=== PATIENT | female | born 1930 | race Caucasian/White ===

== ENCOUNTER 2018-09-17 22:12 | Inpatient (IN) | payer MEDICARE, MEDICAID ==
[~2018-09-17] VITALS: Ht 167.6 cm; Wt 77.6 kg
[2018-09-17 22:43] LABS: CHLORIDE 97 mEq/L (98-107)
[2018-09-17 22:44] LABS: BASOPHILS % 0.4 % (0.0-2.0); HEMOGLOBIN. 13.1 g/dL (12.0-16.0); LYMPHOCYTES % 37.3 % (20.0-50.0); MEAN CORPUSCULAR VOLUME 98.6 fL (81.0-99.0); MEAN PLATELET VOLUME 9.2 fl (7.4-10.4); MONOCYTES % 10.8 % (2.0-8.0); NEUTROPHILS % 48.5 % (40.0-76.0); PLATELET 222 x1000/uL (130-400); RED BLOOD CELL COUNT 3.96 mill/uL (4.2-5.4); RED CELL DISTRIBUTION WIDTH 14.3 % (11.6-14.6)
[2018-09-17] MEDS ORDERED: ALTEPLASE 100MG/VIAL IV STA (22:46)
[2018-09-17] MEDS ORDERED: ALTEPLASE IV STA (22:46)
[2018-09-17 22:50] LABS: LDL CHOLESTEROL 155 mg/dL (5-100)
[2018-09-17] MEDS ORDERED: IOHEXOL-350 100 ML BOTTLE ONE (23:24)
[2018-09-17] MEDS ORDERED: *NO ASPIRIN X 24 HOURS XX SCH (23:27)
[2018-09-17] MEDS ORDERED: ALTEPLASE 100MG/VIAL IV ONE (23:27)
[2018-09-17] MEDS ORDERED: CONTAINER EMPTY IV ONE (23:35)
[2018-09-17] MEDS ORDERED: ALTEPLASE IV ONE (23:35)
[2018-09-18] VITALS (30 sets, daily range): BP systolic 112–179; BP diastolic 50–90
[2018-09-18 00:38] LABS: CLARITY URINE CLEAR (CLEAR); COLOR URINE YELLOW (YELLOW); KETONES URINE NEGATIVE (NEGATIVE); LEUKOCYTE ESTERASE URINE 2+ (NEGATIVE); NITRITE URINE NEGATIVE (NEGATIVE); OCCULT BLOOD URINE TRACE (NEGATIVE); PH URINE 7.5 (4.5-8.0); PROTEIN URINE NEGATIVE (NEGATIVE); SPECIFIC GRAVITY URINE 1.021 (1.005-1.030); UROBILINOGEN URINE 0.2 E.U./dL (0.2-1.0)
[2018-09-18] MEDS ORDERED: LABETALOL 5MG/ML SYR 20 MG/4 ML SYRINGE IV ONE (03:45)
[2018-09-18] MEDS ORDERED: LABETALOL HCL 20MG/4ML CARPUJECT IV SCH (03:45)
[2018-09-18] MEDS ORDERED: MAGNESIUM/ALUMINUM HYDROXIDE/SIMETHICONE 30ML UDC PO PRN (08:30)
[2018-09-18] MEDS ORDERED: ACETAMINOPHEN 650MG/20.3ML UDC GT PRN (08:30)
[2018-09-18] MEDS ORDERED: ONDANSETRON HCL 4MG/2ML INJ IV PRN (08:30)
[2018-09-18] MEDS ORDERED: DOCUSATE SODIUM 100MG CAPSULE PO PRN (08:30)
[2018-09-18] MEDS ORDERED: DEXTROSE 50% WATER 50ML SYRINGE IV PRN (08:30)
[2018-09-18] MEDS ORDERED: NA PHOS,M-B/NA PHOS,DI-BA ENEMA 118ML PR PRN (08:30)
[2018-09-18] MEDS ORDERED: GUAIFENESIN 200MG/10ML SUGAR FREE UDC PO PRN (08:30)
[2018-09-18] MEDS ORDERED: ACETAMINOPHEN 650MG SUPP PR PRN (08:30)
[2018-09-18] MEDS ORDERED: DIPHENHYDRAMINE 50MG/ML VIAL IV PRN (08:30)
[2018-09-18] MEDS ORDERED: IPRATROPIUM/ALBUTEROL 0.5-3(2.5)MG/3ML NEB INH PRN (08:30)
[2018-09-18 10:10] LABS: T4 FREE 0.94 ng/dL (0.76-1.46)
[2018-09-18] MEDS: ACETAMINOPHEN 325MG TABLET PO PRN (12:24)
[2018-09-18 16:04] LABS: CREATINE KINASE 117 IU/L (26-192)
[2018-09-18 16:05] LABS: CREATINE KINASE MB FRACTION 1.3 ng/mL (0.5-3.6)
[2018-09-18] MEDS ORDERED: ONDANSETRON HCL 4MG/2ML INJ ONE (16:16)
[2018-09-18] MEDS: BLOOD SUGAR DIAGNOSTIC STRIP TEST SCH ×2 (16:30→21:36)
[2018-09-18] MEDS: SODIUM CHLORIDE 0.9% 1,000 ML IV SCH (17:00)
[2018-09-18] MEDS: ATORVASTATIN CALCIUM 20MG TABLET PO SCH (21:00)
[2018-09-18 21:34] LABS: CLARITY URINE CLOUDY (CLEAR); COLOR URINE YELLOW (YELLOW); KETONES URINE NEGATIVE (NEGATIVE); LEUKOCYTE ESTERASE URINE 3+ (NEGATIVE); NITRITE URINE POSITIVE (NEGATIVE); OCCULT BLOOD URINE 3+ (NEGATIVE); PROTEIN URINE TRACE (NEGATIVE); SPECIFIC GRAVITY URINE 1.012 (1.005-1.030); UROBILINOGEN URINE 0.2 E.U./dL (0.2-1.0)
[2018-09-18] MEDS: SODIUM CHLORIDE 0.9% INJ 3ML FLUSH IVF SCH (21:36)
[2018-09-18 22:04] LABS: *AMPHETAMINES SCREEN URINE NEGATIVE (NEGATIVE); *BARBITURATES SCREEN URINE NEGATIVE (NEGATIVE); *BENZODIAZEPINES SCREEN URINE NEGATIVE (NEGATIVE); *COCAINE SCREEN URINE NEGATIVE (NEGATIVE)
[2018-09-18 22:05] LABS: CANNABINOID URINE SCREEN NEGATIVE (NEGATIVE); METHADONE URINE SCREEN NEGATIVE (NEGATIVE); OPIATES URINE SCREEN NEGATIVE (NEGATIVE); PHENCYCLIDINE URINE SCREEN NEGATIVE (NEGATIVE)
[2018-09-19] VITALS (66 sets, daily range): BP systolic 84–167; BP diastolic 30–150
[2018-09-19 00:13] LABS: BASOPHILS % 0.5 % (0.0-2.0); EOSINOPHILS % 0.7 % (0.0-5.0); HEMATOCRIT. 36.9 % (36.0-48.0); HEMOGLOBIN. 12.4 g/dL (12.0-16.0); LYMPHOCYTES % 16.5 % (20.0-50.0); MEAN CORPUSCULAR HEMOGLOBIN 32.7 pg (28.0-32.0); MEAN CORPUSCULAR VOLUME 97.3 fL (81.0-99.0); MEAN PLATELET VOLUME 9.1 fl (7.4-10.4); MONOCYTES % 8.8 % (2.0-8.0); NEUTROPHILS % 73.5 % (40.0-76.0); PLATELET 213 x1000/uL (130-400); RED BLOOD CELL COUNT 3.79 mill/uL (4.2-5.4); RED CELL DISTRIBUTION WIDTH 13.9 % (11.6-14.6)
[2018-09-19 00:31] LABS: CHLORIDE 101 mEq/L (98-107)
[2018-09-19 00:43] LABS: CREATINE KINASE 167 IU/L (26-192)
[2018-09-19 00:46] LABS: CREATINE KINASE MB FRACTION 1.4 ng/mL (0.5-3.6)
[2018-09-19 05:48] LABS: BASOPHILS % 0.4 % (0.0-2.0); EOSINOPHILS % 1.3 % (0.0-5.0); HEMATOCRIT. 36.6 % (36.0-48.0); HEMOGLOBIN. 12.3 g/dL (12.0-16.0); LYMPHOCYTES % 9.6 % (20.0-50.0); MEAN CORPUSCULAR HEMOGLOBIN 32.6 pg (28.0-32.0); MEAN CORPUSCULAR VOLUME 97.2 fL (81.0-99.0); MEAN PLATELET VOLUME 9.2 fl (7.4-10.4); MONOCYTES % 10.8 % (2.0-8.0); NEUTROPHILS % 77.9 % (40.0-76.0); PLATELET 215 x1000/uL (130-400); RED BLOOD CELL COUNT 3.77 mill/uL (4.2-5.4); RED CELL DISTRIBUTION WIDTH 13.8 % (11.6-14.6)
[2018-09-19 05:51] LABS: CHLORIDE 103 mEq/L (98-107)
[2018-09-19] MEDS: BLOOD SUGAR DIAGNOSTIC STRIP TEST SCH ×4 (05:56→20:41)
[2018-09-19] MEDS: SODIUM CHLORIDE 0.9% INJ 3ML FLUSH IVF SCH ×3 (05:56→21:27)
[2018-09-19 05:59] LABS: LDL CHOLESTEROL 147 mg/dL (5-100)
[2018-09-19 06:01] LABS: CREATINE KINASE 184 IU/L (26-192); HDL CHOLESTEROL 45 mg/dL (40-59)
[2018-09-19 06:03] LABS: CREATINE KINASE MB FRACTION 1.4 ng/mL (0.5-3.6)
[2018-09-19] MEDS: ASPIRIN 81MG TABLET PO SCH (09:30)
[2018-09-19] MEDS: CEFTRIAXONE 1 G PREMIX 50 ML IV SCH (09:58)
[2018-09-19] MEDS ORDERED: POTASSIUM CHLORIDE INJ 40 MEQ in DEXT 5% WATER 250 ML IV SCH (11:00)
[2018-09-19] MEDS ORDERED: HYDRALAZINE 20MG/ML VIAL IV SCH (12:15)
[2018-09-19] MEDS: ATORVASTATIN CALCIUM 20MG TABLET PO SCH (20:40)
[2018-09-19] MEDS: SODIUM CHLORIDE 0.9% 1,000 ML IV SCH (20:42)
[2018-09-20] VITALS (40 sets, daily range): BP systolic 119–168; BP diastolic 53–92
[2018-09-20] MEDS: SODIUM CHLORIDE 0.9% INJ 3ML FLUSH IVF SCH ×3 (06:00→23:22)
[2018-09-20] MEDS: BLOOD SUGAR DIAGNOSTIC STRIP TEST SCH ×3 (06:30→16:30)
[2018-09-20] MEDS ORDERED: POTASSIUM CHLORIDE 20MEQ/PACKET PO NR (09:30)
[2018-09-20] MEDS: CEFTRIAXONE 1 G PREMIX 50 ML IV SCH (10:30)
[2018-09-20] MEDS: ASPIRIN 81MG TABLET PO SCH (11:23)
[2018-09-20 13:19] LABS: CHLORIDE 108 mEq/L (98-107)
[2018-09-20 13:56] LABS: BASOPHILS % 0.4 % (0.0-2.0); EOSINOPHILS % 2.1 % (0.0-5.0); HEMATOCRIT. 38.1 % (36.0-48.0); HEMOGLOBIN. 12.7 g/dL (12.0-16.0); LYMPHOCYTES % 13.7 % (20.0-50.0); MEAN CORPUSCULAR HEMOGLOBIN 32.7 pg (28.0-32.0); MEAN CORPUSCULAR VOLUME 98.6 fL (81.0-99.0); MEAN PLATELET VOLUME 9.3 fl (7.4-10.4); MONOCYTES % 10.4 % (2.0-8.0); NEUTROPHILS % 73.4 % (40.0-76.0); PLATELET 198 x1000/uL (130-400); RED BLOOD CELL COUNT 3.86 mill/uL (4.2-5.4); RED CELL DISTRIBUTION WIDTH 14.1 % (11.6-14.6)
[2018-09-20] MEDS: ACETAMINOPHEN 325MG TABLET PO PRN (16:18)
[2018-09-20] MEDS ORDERED: ATORVASTATIN CALCIUM 20MG TABLET PO SCH (21:00)
[2018-09-20] MEDS: ATORVASTATIN CALCIUM 20MG TABLET PO SCH (21:01)
[2018-09-20] MEDS: SODIUM CHLORIDE 0.9% 1,000 ML IV SCH (23:22)
[2018-09-21] VITALS: BP 146/85
[2018-09-21 04:00] VITALS: BP 153/83
[2018-09-21] MEDS: SODIUM CHLORIDE 0.9% INJ 3ML FLUSH IVF SCH ×3 (05:55→21:07)
[2018-09-21] MEDS: BLOOD SUGAR DIAGNOSTIC STRIP TEST SCH ×4 (05:55→21:00)
[2018-09-21 08:00] VITALS: BP 189/80
[2018-09-21] MEDS: ASPIRIN 81MG TABLET PO SCH (09:14)
[2018-09-21] MEDS: CEFTRIAXONE 1 G PREMIX 50 ML IV SCH (11:25)
[2018-09-21] MEDS ORDERED: ASPI-1160 PO (11:31)
[2018-09-21] MEDS ORDERED: ATOR20TA PO (11:31)
[2018-09-21] MEDS ORDERED: AMLO2.5T45 PO (11:32)
[2018-09-21] MEDS ORDERED: CEFT1VIA15 IV (11:34)
[2018-09-21 12:23] VITALS: BP 155/68
[2018-09-21] MEDS: AMLODIPINE 2.5MG TABLET PO SCH ×2 (13:47→21:08)
[2018-09-21 16:00] VITALS: BP 167/70
[2018-09-21 20:35] VITALS: BP 166/82
[2018-09-21] MEDS: SODIUM CHLORIDE 0.9% 1,000 ML IV SCH (21:07)
[2018-09-21] MEDS: ATORVASTATIN CALCIUM 20MG TABLET PO SCH (21:08)
[2018-09-21] MEDS: ACETAMINOPHEN 325MG TABLET PO PRN (23:51)
[2018-09-22] VITALS: BP 122/65
[2018-09-22 04:00] VITALS: BP 147/71
[2018-09-22] MEDS: SODIUM CHLORIDE 0.9% INJ 3ML FLUSH IVF SCH ×3 (05:51→21:50)
[2018-09-22] MEDS: BLOOD SUGAR DIAGNOSTIC STRIP TEST SCH ×4 (05:51→21:45)
[2018-09-22 08:00] VITALS: BP 136/66
[2018-09-22] MEDS: CEFTRIAXONE 1 G PREMIX 50 ML IV SCH (09:21)
[2018-09-22] MEDS: ASPIRIN 81MG TABLET PO SCH (09:22)
[2018-09-22] MEDS: AMLODIPINE 2.5MG TABLET PO SCH ×2 (09:22→21:45)
[2018-09-22 12:00] VITALS: BP 101/84
[2018-09-22] MEDS: SODIUM CHLORIDE 0.9% 1,000 ML IV SCH ×2 (12:19→18:02)
[2018-09-22] MEDS: ENOXAPARIN 40MG/0.4ML SYR SUBCUT SCH (13:59)
[2018-09-22 15:41] VITALS: BP 140/65
[2018-09-22 20:00] VITALS: BP 147/59
[2018-09-22] MEDS: ATORVASTATIN CALCIUM 20MG TABLET PO SCH (21:45)
[2018-09-23] VITALS: BP 151/67
[2018-09-23 04:00] VITALS: BP 161/67
[2018-09-23] MEDS: SODIUM CHLORIDE 0.9% INJ 3ML FLUSH IVF SCH ×2 (06:33→14:00)
[2018-09-23] MEDS: BLOOD SUGAR DIAGNOSTIC STRIP TEST SCH ×2 (06:34→12:20)
[2018-09-23 08:05] VITALS: BP 130/73
[2018-09-23] MEDS: AMLODIPINE 2.5MG TABLET PO SCH (09:01)
[2018-09-23] MEDS: ASPIRIN 81MG TABLET PO SCH (09:01)
[2018-09-23] MEDS: CEFTRIAXONE 1 G PREMIX 50 ML IV SCH (09:01)
[2018-09-23 12:03] VITALS: BP 174/72
[2018-09-23] MEDS: ENOXAPARIN 40MG/0.4ML SYR SUBCUT SCH (12:26)
[2018-09-23] MEDS: SODIUM CHLORIDE 0.9% 1,000 ML IV SCH (15:29)
[2018-09-23 15:55] VITALS: BP 151/63
[2018-09-23 17:30] VITALS: BP 151/63
== END 2018-09-23 19:43 | DRG 65 ==
LOC: ER 22:12 → MICUSO 09-18 01:22 → EDBEDREQ 09-18 01:24 → EDBEDREQDT 09-18 01:24 → EDBEDREQSVC 09-18 01:24 → EDBEDREQTM 09-18 01:24 → ENRESERV 09-18 15:05 → MICUSO 09-19 20:19 → 6WST 09-20 21:40
PROVIDERS: ADMIT Family Medicine; ATTEND Family Medicine
DX: I63.511 Cerebral infarction due to unspecified occlusion or stenosis of right middle cerebral artery (principal); R41.4 Neurologic neglect syndrome; G81.94 Hemiplegia, unspecified affecting left nondominant side; E78.5 Hyperlipidemia, unspecified; I48.91 Unspecified atrial fibrillation; I10 Essential (primary) hypertension; R79.1 Abnormal coagulation profile; Z86.73 Personal history of transient ischemic attack (TIA), and cerebral infarction without residual deficits; R29.810 Facial weakness; Z92.82 Status post administration of tPA (rtPA) in a different facility within the last 24 hours prior to admission to current facility; Z85.038 Personal history of other malignant neoplasm of large intestine; Z92.21 Personal history of antineoplastic chemotherapy
CPT/HCPCS: 36415; 70496; 70498; 70551; 71045; 80048; 80061; 80305; 82550; 82553; 82962; 83036; 83721; 83880; 84439; 84443; 84484; 85379; 87077; 87186; 92610; 93005; 93306; 93880; 93970; 97110; 97163; 97166; 97530; 97535; 99291; J0696; J1200; J1650; J2405; J2997; J3480; J3490; J7060; Q9967